=== PATIENT | male | born 1950 | race Caucasian/White ===

== ENCOUNTER 2019-07-28 12:21 | Observation (INO) ==
--- NOTE | 2019-07-28 12:45 | ERNOTE ---
Abdominal HPI - Narrative Date of Service: 07/28/19 - General Chief Complaint: Constipation Time Seen by Provider: 07/28/19 12:45 Source: patient Exam Limitations: no limitations - Immun/Allergies/Home Medications Immunizatons: IMMUNIZATION HX Immunizations Up to Date Yes History of Influenza Vaccine Yes Hx Pneumococcal Vaccination No Allergies/Adverse Reactions: Allergies No Known Allergies Allergy (Verified 07/28/19 18:58) Home Medications: HOME MEDICATIONS Multivitamin [Poly-Vitamin] 1 ea PO DAILY 09/10/15 [Last Taken Unknown] lisinopril 10 mg tablet 10 mg PO DAILY #90 tab 09/23/18 [Last Taken Unknown] - History of Present Illness Narrative: The patient is a 68 year old male who presents for constipation which has been present 3 days. There are associated symptoms of bloating, decreased appetite, dull lower abdominal pain and low back pain. The patient reports constant dull 4/10 diffuse lower abdominal pain and 8/10 low back pain. There are alleviating factors warm tub soaks and laying supine. There are aggravating factors of movement. Previous treatments have included: 1 bottle magnesium citrate today at noon with no results. The past medical history includes HTN, diverticulosis, and tubular adenoma colon. The social history is negative. The patient has had no ill contacts. Patient reports last normal bowel movement was Sunday morning. Since this time he has felt the urge to defecate but had no results. He denies nausea, vomiting, fever or chills. No history of abdominal surgery. Review of Systems - Review of Systems Constitutional: Present: no symptoms reported. Absent: recent illness, fever, chills, fatigue EYE: Present: no symptoms reported ENT: Present: no symptoms reported. Absent: ear pain, nasal drainage, sore throat Respiratory: Present: no symptoms reported. Absent: shortness of breath, cough Cardiology: Present: no symptoms reported. Absent: chest pain Gastrointestinal/Abdominal: Present: nausea, constipation, abdominal pain. Absent: vomiting, diarrhea Genitourinary: Present: no symptoms reported. Absent: dysuria, decreased urinary output Musculoskeletal: Present: back pain Skin: Present: no symptoms reported. Absent: rash Neurological: Present: no symptoms reported All Other Systems: All systems neg except as marked Medical History (Updated 07/28/19 @ 17:08 by Vanessa Jurado DO) Diverticulosis (Chronic) Onset Date: 10/17/13 Complete tear of right rotator cuff Onset Date: ~12/2017 Hypertension Onset Date: Unknown Fracture Onset Date: Unknown States he had a fracture to left lower leg in 2 spots, one by the knee and one by the ankle. History of MRI Onset Date: 05/20/[address] Juan Manuel Barrera, [facility], [place], [facility], massive rotator cuff tear involving the entire supraspinatus, infraspinatus, and subscapularis. Has humeral head chondromalacia. Extensive labral tearing. Tubular adenoma of colon Onset Date: 10/17/13 Surgical History: Surgical History (Updated 07/28/19 @ 17:08 by Vanessa Jurado DO) History of colonoscopy Onset Date: 10/17/13 Dr. Rodri Ortiz, [facility]. Tubular adenoma, extensive sigmoid diverticulosis. Recheck 5 years. History of lip surgery Onset Date: ~2015 Dr. Vito Huynh. 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 Tobacco: Smoking Status: Never smoker Alcohol: alcohol intake: never Substance Use: substance use type: does not use Dietary Habits: caffeine: Yes Type: coffee Physical Exam - Physical Exam General Appearance: Present: wd/wn, alert, mild distress Head Exam: Present: normal inspection Eye Exam: Normal inspection: bilateral Neck: Present: normal inspection Respiratory: Present: no respiratory distress, normal breath sounds, no accessory muscle use, lungs clear Cardiovascular/Chest: Present: regular rate, rhythm, no murmur Gastrointestinal/Abdominal: Present: normal bowel sounds, nondistended, soft, no organomegaly, tenderness - diffuse low abdomen Back Exam: Present: no vertebral tenderness Neurological Exam: Present: alert, oriented, normal mood/affect, no motor/sensory deficits Skin Exam: Present: normal color, warm/dry Progress - Date and Time Seen: Date and Time: 07/28/19 13:30 Due to abnormal findings on abdominal x-ray of possible pneumatosis coli will proceed with abdominal pelvis CT scan. 07/28/19 14:23 We will administer IV fluids for hydration due to increased creatinine and GFR of 31. 07/28/19 16:25 Contact with , general surgery for consult regarding abnormal CT. 07/28/19 16:44 present to discuss care with patient. 07/28/19 17:02 Plan for patient admission for repeat imaging and labs. states to admit to her and she will discuss with for consult as well as if they need urology consult. Instructed by Bertha PAULINO that states to admit to him with consult for general surgery. - Results and Orders Patient's Lab Results:: I have reviewed the patient's lab results. - Vital Signs Patient's Vital Signs:: I have reviewed the patient's vital signs. Vital Signs: Vital Signs 07/28/19 12:41 Temperature 36.9 C Pulse Rate 86 Respiratory Rate 15 Blood Pressure 153/84 H O2 Sat by Pulse Oximetry 96 - X-Ray X-Ray #1 X-Ray: abdomen Interpretation: Reviewed by me X-ray Comments: IMPRESSION: 1. Stool retention, with questionable areas of potential pneumatosis coli along the right side of the colon as discussed above. Correlate clinically. Consider CT examination of further evaluate. 2. No evidence for bowel obstruction. 3. Air-fluid levels within large bowel segments suggestive of potential colitis. Ordering provider DELICIA Israel was informed regarding the above results by telephone on 07/28/2019 1:26 PM. Electronically signed by Vijay Galarza M.D.. - CT/Ultrasound CT/Ultrasound Narrative: IMPRESSION: 1. 3 mm calcification of the distal right ureter causing right-sided obstructive uropathy. 2. Potential pneumatosis coli suggested at the distended cecum/ascending colon without definite signs of bowel wall thickening or adjacent inflammatory process. There is no evidence for extraluminal gas or fluid collection. This is of unknown clinical significance, and can be due to benign causes (for example, but not exclusive to, asthma, COPD, steroid use, immunosuppression, cystic fibrosis) but correlate clinically for potential colonic ischemia or toxic megacolon, as these processes cannot be entirely excluded. Consider surgical consultation. 3. Additional comments are as above. Ordering provider DELICIA Israel was informed regarding the above results by telephone on 07/28/2019 4:18 PM. - Progress/Reassessment Chief Complaint: Constipation Progress:: Improved Departure Clinical Impression: Pneumatosis coli, Acute renal insufficiency, Ureteral calculus, right, Elevated lipase - Departure Disposition: Still a patient Condition: Fair
[2019-07-28] MEDS ORDERED: DIATRIZOATE MEGLUMINE, SODIUM 30 ML BTL PO ONE (13:34)
[2019-07-28 13:48] LABS: Hematocrit 48.2 % (42.0-52.0); Hemoglobin 16.1 gm/dL (13.5-18.0); Mean Cell Volume 90.8 fl (78-100); Mean Corpuscular Hemoglobin 30.3 pg (27-31); Mean Corpuscular Hgb Conc 33.4 g/dl (32-36); Mean Platelet Volume 9.5 fl (8-11.3); Neutrophil # 8.5 K/mm3 (1.3-6.0); Neutrophil % 78.4 % (42-75.0); Platelet Count 192 K/mm3 (150-450); Red Blood Count 5.31 M/mm3 (4.7-6.0); Red Cell Distribution Width 12.9 % (11.5-14.0); White Blood Count 10.8 K/mm3 (4.0-10.5)
[2019-07-28 13:53] LABS: Urine Bilirubin Negative (NEGATIVE); Urine Blood Negative /ul (NEGATIVE); Urine Ketone Negative (NEGATIVE); Urine Nitrite Negative (NEGATIVE); Urine Protein Negative (NEGATIVE); Urine Specific Gravity 1.025 SP.GR. (1.005-1.030); Urine Urobilinogen Normal (NORMAL); Urine pH 5.5 pH (5.0-7.0)
[2019-07-28 13:59] LABS: Urine Appearance Clear (CLEAR); Urine Bacteria None Seen; Urine Color Yellow; Urine RBC None Seen /hpf (0-5); Urine WBC None Seen /hpf (0-5)
[2019-07-28 14:03] LABS: Albumin * 3.8 gm/dl (3.4-5.0); Anion Gap 12.3 mmol/L (6.8-13.8); BUN/Creatinine Ratio 8.8 (9.0-21.6); Bilirubin, Total 0.7 mg/dL (0.0-1.1); Calcium * 9.2 mg/dL (7.9-10.9); Carbon Dioxide 29.5 mmol/L (24-32.6); Potassium 4.8 mmol/L (3.4-4.6); Total Protein 7.2 gm/dL (6.2-8.2)
[2019-07-28] MEDS ORDERED: NORMAL SALINE 1,000 ML IV PRN (14:17)
[2019-07-28] MEDS ORDERED: ONDANSETRON HCL/PF 2 MG/ML VIAL IV PRN (17:03)
[2019-07-28] MEDS ORDERED: HYDROcodone/ACETAMINOPHEN 1 EACH TABLET PO PRN (17:03)
--- NOTE | 2019-07-28 17:08 | CONS ---
- Reason for consultation (1) Acute renal insufficiency Date of Service: 07/28/19 (2) Pneumatosis coli Date of Service: 07/28/19 (3) Ureteral calculus, right Date of Service: 07/28/19 HPI - General Date of Service: 07/28/19 Source: patient Exam Limitations: no limitations - History of Present Illness Initial Comments: Colby is a pleasant 68-year-old gentleman who feels like he has been constipated for the last several days. He tried taking a bottle of magnesium citrate today without relief. His pain is in the right side of his abdomen and in the right flank. It is worse in the right flank. His colonoscopy is up-to-date. He can urinate without difficulty. He had a CT scan which demonstrates a right ureteral stone. This also shows possible pneumatosis in the right colon. He has significant sigmoid diverticulosis with no evidence of diverticulitis. His white count is normal. His creatinine is elevated. Timing/Duration: 1 week Severity: moderate Modifying Factors - (Worsens): Reports: movement Modifying Factors - (Improves): Reports: immobilization Associated Symptoms: denies symptoms Allergies/Adverse Reactions: Allergies No Known Allergies Allergy (Verified 07/28/19 18:58) Home Medications: Home Medications Medication Instructions Recorded Last Taken Multivitamin [Poly-Vitamin] 1 ea PO DAILY 09/10/15 Unknown lisinopril 10 mg tablet 10 mg PO DAILY #90 tab 09/23/18 Unknown Procedures Endoscopic polypectomy of large intestine (10/17/13) Medications - Medications Current Medications: Current Medications Sodium Chloride (Sodium Chloride 0.9%) 1,000 mls @ 999 mls/hr IV .Q1H1M PRN PRN Reason: HYDRATION Stop: 08/27/19 14:18 Last Infusion: 07/28/19 15:23 Dose: Infused Documented by: Review of Systems - Review of Systems Generalized/Overall Review: Present: Malaise EENTM: Present: No Symptoms Reported Respiratory: Present: No Symptoms Reported Cardiac: Present: No Symptoms Reported Abdominal: Present: Abdominal Pain, Constipation Genitourinary: Present: No Symptoms Reported Musculoskeletal: Present: No Symptoms Reported Neurological: Present: No Symptoms Reported Skin: Present: No Symptoms Reported Endocrine: Present: No Symptoms Reported Physical Examination - Exam Vital Signs: Vital Signs - Last Taken Temp 36.9 C 07/28/19 12:41 Pulse 86 07/28/19 12:41 Resp 15 07/28/19 12:41 BP 153/84 H 07/28/19 12:41 Pulse Ox 96 07/28/19 12:41 O2 Oxygen Delivery Method Room Air Constitutional: Present: Alert, Oriented x3, Cooperative ENT Exam: Present: hearing grossly normal Eye Exam: bilateral eye: normal inspection Neck: Present: supple, trachea midline Breasts: Present: Exam deferred Respiratory: Present: chest non-tender, lungs clear, normal breath sounds Cardiovascular/Chest: Present: regular rate, rhythm, no JVD Abdomen: Present: Normal bowel sounds, soft, nondistended, no rebound tenderness, no masses, obese, tender, CVA tenderness. Absent: guarding, rigidity, rebound tenderness /Rectal: Present: Exam deferred Extremity: Present: normal range of motion Skin Exam: Present: normal color Neurologic: Present: robot technician II-XII nml as tested Appearance: Present: appropriate appearance Eye contact: Present: cooperative, good eye contact, normal speech Thoughts: Present: normal thought pattern - Results and Findings: Lab/Microbiology results last 24 hrs: Abnormal/Pending Laboratory Last 24 HRS 07/28/19 07/28/19 13:45 13:45 WBC 10.8 H Neutrophils % 78.4 H Lymphocytes % 10.4 L Monocytes % 10.5 H Neutrophils # 8.5 H Lymphocytes # 1.13 L Monocytes # 1.1 H Potassium 4.8 H Creatinine 2.27 H D Est GFR (Non-Af Amer) 31 L D BUN/Creatinine Ratio 8.8 L ALT 16 L Lipase 660 H - Assessments/Findings (1) Acute renal insufficiency Problem: Acute (2) Pneumatosis coli Problem: Acute (3) Ureteral calculus, right Problem: Acute Plan - Plan Plan: discussed with dr. Bhatt He will be admitting, im consulting continue to monitor IVF overnoc Uro consult in am, if not improved abd pain already improved with BM normal WBC, no signs of ischemia I reviewed his CT scan and images.
[2019-07-28] MEDS: NORMAL SALINE 1,000 ML IV PRN (18:52)
[2019-07-29] MEDS: NORMAL SALINE 1,000 ML IV PRN ×3 (02:25→19:09)
[2019-07-29] MEDS: HYDROmorphone HCL 1 MG/ML DISP.SYRIN IV PRN ×2 (02:28→19:08)
[2019-07-29 05:52] LABS: Hematocrit 42.2 % (42.0-52.0); Hemoglobin 13.8 gm/dL (13.5-18.0); Mean Cell Volume 91.5 fl (78-100); Mean Corpuscular Hemoglobin 29.9 pg (27-31); Mean Corpuscular Hgb Conc 32.7 g/dl (32-36); Mean Platelet Volume 9.5 fl (8-11.3); Neutrophil # 5.7 K/mm3 (1.3-6.0); Neutrophil % 68.1 % (42-75.0); Platelet Count 160 K/mm3 (150-450); Red Blood Count 4.61 M/mm3 (4.7-6.0); Red Cell Distribution Width 12.9 % (11.5-14.0); White Blood Count 8.4 K/mm3 (4.0-10.5)
[2019-07-29 06:05] LABS: Anion Gap 11.7 mmol/L (6.8-13.8); BUN/Creatinine Ratio 9.3 (9.0-21.6); Bilirubin, Total 0.9 mg/dL (0.0-1.1); Ca. Corrected For Albumin 8.5 mg/dL (8.4-10.2); Carbon Dioxide 26.7 mmol/L (24-32.6); Potassium 4.4 mmol/L (3.4-4.6); Total Protein 5.9 gm/dL (6.2-8.2)
[2019-07-29] MEDS ORDERED: ONDANSETRON HCL/PF 2 MG/ML VIAL IV PRN (09:06)
--- NOTE | 2019-07-29 09:07 | PN ---
Dictated Progress Note - Date and Time Seen: Date: 07/29/19 Time: 09:05 - Progress Note Narrative: Feeling better today. min abd pain. right flank pain also improved. Vital Signs - Last Taken Temp 36.3 C 07/29/19 06:24 Pulse 65 07/29/19 06:24 Resp 18 07/29/19 06:24 BP 121/74 07/29/19 06:24 Pulse Ox 95 07/29/19 06:24 Abnormal/Pending Laboratory Last 24 HRS 07/29/19 07/29/19 07/28/19 05:40 05:40 13:45 WBC RBC 4.61 L Neutrophils % Lymphocytes % 17.9 L Monocytes % 13.7 H Neutrophils # Lymphocytes # Monocytes # 1.2 H Potassium 4.8 H Chloride 107 H Creatinine 2.26 H 2.27 H D Est GFR (Non-Af Amer) 31 L 31 L D BUN/Creatinine Ratio 8.8 L ALT 13 L 16 L Total Protein 5.9 L Albumin 3.0 L Lipase 660 H 07/28/19 13:45 WBC 10.8 H RBC Neutrophils % 78.4 H Lymphocytes % 10.4 L Monocytes % 10.5 H Neutrophils # 8.5 H Lymphocytes # 1.13 L Monocytes # 1.1 H Potassium Chloride Creatinine Est GFR (Non-Af Amer) BUN/Creatinine Ratio ALT Total Protein Albumin Lipase NAD abd non distended, non tender, no guarding or rebound non labored respirations Imp: poss pneumatosis coli ureteral stone elevated creatine Plan: IVF no acute general surgery issues, no clinic signs of pneumatosis bowels are working WBC decreased
[2019-07-29] MEDS: HYDROcodone/ACETAMINOPHEN 1 EACH TABLET PO SCH ×3 (10:04→20:36)
[2019-07-29] MEDS: LISINOPRIL 10 MG TABLET PO SCH (10:41)
--- NOTE | 2019-07-29 17:32 | HP ---
Chief Complaint - Chief Complaint Date of Service: 07/29/19 Time of Service: 08:30 Chief Complaint: Abdominal, right flank pain History of Present Illness: Colby is a 68 yo male that presented to the [facility] ER with right abdominal pain and right flank pain for the last few days. Symptoms were worsening. He reports he has been having bowel movements. He denies blood in urine or stool. No fever or chills. He presented to the ER and abdominal xray indicated possible pneumatosis coli, so a CT was completed to further evaluate. CT showed possible pneumatosis coli but showed a 3mm distal ureteral stone with obstructive uropathy. General surgery was consulted to evaluate the patient for pneumatosis coli. Dr. Jurado evaluated the patient and based on imaging and exam felt that this was not pneumatosis coli and that the patients symptoms were likely due to obstructed ureteral stone. Medical History (Updated 07/28/19 @ 21:20 by Stella Ashton [facility]) Diverticulosis (Chronic) Onset Date: 10/17/13 Complete tear of right rotator cuff Onset Date: ~12/2017 Hypertension Onset Date: Unknown Fracture Onset Date: Unknown States he had a fracture to left lower leg in 2 spots, one by the knee and o ne by the ankle. History of MRI Onset Date: 05/20/[address] Juan Manuel Barrera, [facility], massive rotator cuff tear involving the entire supraspinatus, infraspinatus, and subscapularis. Has humeral head chondromalacia. Extensive labral tearing. Tubular adenoma of colon Onset Date: 10/17/13 Surgical History: Surgical History (Updated 07/28/19 @ 17:08 by Vanessa Jurado DO) History of colonoscopy Onset Date: 10/17/13 Dr. Rodri Ortiz, [facility]. Tubular adenoma, extensive sigmoid diverticulosis. Recheck 5 years. History of lip surgery Onset Date: ~2015 Dr. Vito Huynh. Family History: Family History (Updated 09/27/18 @ 18:03 by Ashli Leonard RN) Father , age 76 Cancer Agent [place] poisoning Social History: (Last Reviewed 07/28/19 @ 18:59 by Mick Damon RN) Social History: adopted: No assisted: No Marital status: Single lives independently: Yes household members: none number of children: 2 current occupational status: employed current occupation: [employer] Highest education level completed: some college, no degree Service: Yes branch: [employer] Tobacco: Smoking Status: Never smoker Alcohol: alcohol intake: never Substance Use: substance use type: does not use Dietary Habits: caffeine: Yes Type: coffee Review Of Systems (GEN) - Review of Systems Generalized/Overall Review: Absent: Weakness, Chills, Fever EENTM: Present: No Symptoms Reported Respiratory: Absent: Cough, Shortness of Breath Cardiac: Absent: Chest Pain, Edema Abdominal: Present: Nausea, Abdominal Pain. Absent: Vomiting, Hematemesis, Constipation, Bright blood from rectum Genitourinary: Absent: Burning, Itching, Urgency, Frequency, Hesitancy Musculoskeletal: Present: Back Pain Neurological: Present: No Symptoms Reported Skin: Present: No Symptoms Reported Immunizations: IMMUNIZATION HX Immunizations Up to Date Yes History of Influenza Vaccine Yes Hx Pneumococcal Vaccination No Allergies/Adverse Reactions: Allergies Allergy/AdvReac Type Severity Reaction Status Date / Time No Known Allergies Allergy Verified 07/28/19 18:58 Home Medications: HOME MEDICATIONS Multivitamin [Poly-Vitamin] 1 ea PO DAILY 09/10/15 [Last Taken Unknown] lisinopril 10 mg tablet 10 mg PO DAILY #90 tab 09/23/18 [Last Taken Unknown] Exam - Exam Vital Signs: Vital Signs - Last Taken Temp 36.7 C 07/29/19 13:29 Pulse 67 07/29/19 13:29 Resp 16 07/29/19 13:29 BP 130/85 07/29/19 13:29 Pulse Ox 94 07/29/19 13:29 Constitutional: Present: Alert, Oriented x3, Cooperative ENT Exam: Present: hearing grossly normal Eye Exam: bilateral eye: normal inspection Back Exam: Present: other - Right flank pain, positive usman's on right Respiratory: Present: lungs clear, normal breath sounds Cardiovascular/Chest: Present: regular rate, rhythm, no edema Peripheral Pulses: radial (R): 2+, radial (L): 2+ Abdomen: Present: Normal bowel sounds, soft, nondistended, no rebound tender ness, no hepatospenomegaly, no masses, tender - RLQ Skin Exam: Present: normal color, warm/dry, no cyanosis Appearance: Present: appropriate appearance, appropriate insight Eye contact: Present: cooperative, good eye contact, normal speech Thoughts: Present: normal thought pattern, no apparent hallucination Diagnostic Studies: Abnormal Lab Results 07/29/19 07/29/19 Range/Units 05:40 05:40 RBC 4.61 L (4.7-6.0) M/mm3 Lymphocytes % 17.9 L (20-51) % Monocytes % 13.7 H (0.0-9) % Monocytes # 1.2 H (0.0-1.0) k/mm3 Chloride 107 H (97-106) mmol/L Creatinine 2.26 H (0.4-1.4) mg/dL Est GFR (Non-Af Amer) 31 L (60-130) mL/min ALT 13 L (19-67) U/L Total Protein 5.9 L (6.2-8.2) gm/dL Albumin 3.0 L (3.4-5.0) gm/dl Laboratory Results WBC 8.4 K/mm3 (4.0-10.5) D 07/29/19 05:40 RBC 4.61 M/mm3 (4.7-6.0) L 07/29/19 05:40 Hgb 13.8 gm/dL (13.5-18.0) 07/29/19 05:40 Hct 42.2 % (42.0-52.0) 07/29/19 05:40 MCV 91.5 fl (78-100) 07/29/19 05:40 MCH 29.9 pg (27-31) 07/29/19 05:40 MCHC 32.7 g/dl (32-36) 07/29/19 05:40 RDW 12.9 % (11.5-14.0) 07/29/19 05:40 Plt Count 160 K/mm3 (150-450) 07/29/19 05:40 MPV 9.5 fl (8-11.3) 07/29/19 05:40 Immature Gran % (Auto) 0.20 % (0.001-0.429) 07/29/19 05:40 Immature Gran # (Auto) 0.02 K/mm3 (0.000-0.0310) 07/29/19 05:40 68.1 % (42-75.0) 07/29/19 05:40 17.9 % (20-51) L 07/29/19 05:40 13.7 % (0.0-9) H 07/29/19 05:40 0.0 % (0.0-3.0) 07/29/19 05:40 0.1 % (0.0-1.0) 07/29/19 05:40 Nucleated RBC % 0.0 k/mm3 (0-1) 07/29/19 05:40 5.7 K/mm3 (1.3-6.0) 07/29/19 05:40 1.51 k/mm3 (1.5-3.5) 07/29/19 05:40 1.2 k/mm3 (0.0-1.0) H 07/29/19 05:40 0.0 k/mm3 (0.0-0.7) 07/29/19 05:40 Absolute Basophils 0.0 k/mm3 (0.0-0.1) 07/29/19 05:40 Sodium 141 mmol/L (132-142) 07/29/19 05:40 141 mmol/L (130-142) 07/29/19 05:40 Potassium 4.4 mmol/L (3.4-4.6) 07/29/19 05:40 Chloride 107 mmol/L (97-106) H 07/29/19 05:40 Carbon Dioxide 26.7 mmol/L (24-32.6) 07/29/19 05:40 11.7 mmol/L (6.8-13.8) 07/29/19 05:40 BUN 21 mg/dL (6-23) 07/29/19 05:40 2.26 mg/dL (0.4-1.4) H 07/29/19 05:40 Est GFR (Non-Af Amer) 31 mL/min (60-130) L 07/29/19 05:40 9.3 (9.0-21.6) 07/29/19 05:40 90 mg/dL (70-110) 07/29/19 05:40 Calcium 8.0 mg/dL (7.9-10.9) 07/29/19 05:40 Calcium Adj for Albumin 8.5 mg/dL (8.4-10.2) 07/29/19 05:40 0.9 mg/dL (0.0-1.1) 07/29/19 05:40 AST 13 U/L (0-48) 07/29/19 05:40 ALT 13 U/L (19-67) L 07/29/19 05:40 64 U/L (50-170) 07/29/19 05:40 5.9 gm/dL (6.2-8.2) L 07/29/19 05:40 3.0 gm/dl (3.4-5.0) L 07/29/19 05:40 Amylase 81 U/L (25-115) 07/28/19 13:45 660 U/L (73-393) H 07/28/19 13:45 Yellow 07/28/19 13:50 Clear (CLEAR) 07/28/19 13:50 5.5 pH (5.0-7.0) 07/28/19 13:50 Ur Specific [place] 1.025 SP.GR. (1.005-1.030) 07/28/19 13:50 Negative mg/dL (NEGATIVE) 07/28/19 13:50 Negative mg/dL (NEGATIVE) 07/28/19 13:50 Negative mg/dL (NEGATIVE) 07/28/19 13:50 Negative /ul (NEGATIVE) 07/28/19 13:50 Negative (NEGATIVE) 07/28/19 13:50 Negative mg/dl (NEGATIVE) 07/28/19 13:50 Normal EU/dl (NORMAL) 07/28/19 13:50 Ur Leukocyte Esterase Negative /ul (NEGATIVE) 07/28/19 13:50 None seen /hpf (0-5) 07/28/19 13:50 None seen /hpf (0-5) 07/28/19 13:50 Ur Epithelial Cells None seen /hpf (0-5) 07/28/19 13:50 None seen (NONE) 07/28/19 13:50 No culture indicated 07/28/19 13:50 Assessment/Plan - Narrative Narrative: Colby is a 68 yo male with right ureteral obstructive uropathy with acute renal failure. Will consult Urology who plans to surgically treat stone due to acute renal failure and evidence of obstruction. Patient to be NPO at midnight. Will control pain with oral hydrocodone and IV dilaudid for prn breakthrough pain. Will start flomax to see if he might be able to pass this before surgery. Anticipate being able to discharge after surgery. Patient was evaluated for pre-operative risks. Based on Revised Cardiovascular Risk Index he has a risk of <0.4% for cardiovascular event. I feel he is medically cleared for surgery. - Assessment/Plan (1) Obstructive uropathy Problem: Acute (2) Acute renal failure Problem: Acute (3) Ureteral calculus, right Problem: Acute
[2019-07-29] MEDS ORDERED: TAMSULOSIN HCL 0.4 MG CAP.SR.24H PO SCH (18:00)
--- NOTE | 2019-07-29 20:33 | CONS ---
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 Seen yesterday with renal failure and a CT demonstrating a distal right 3 to 4 mm stone. Admitted for IV pain nausea control. I am consulted for recommendations regarding stone. 08/07 CT with contrast: No additional renal stones. Bilateral cysts. Right hydroureteronephrosis down to a 3 or 4 mm stone with delayed excretion consistent with partial obstruction. Film independently reviewed and interpreted by myself. Location: Right flank Duration: Since Sunday Severity/Stage: Severe Associated Sx's: Right-sided flank pain nausea and vomiting Modifying factors: Remain symptomatic despite IV pain and nausea medicine Quality: Colicky Past medical history: Denies coronary, pulmonary or significant medical issues. Not diabetic. 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 Review of systems: General: No fevers Lungs: Non-smoker no shortness of breath Heart: No cardiac issues, no chest pain with activity GI: He has had nausea and vomiting with the pain Endocrine: Not diabetic Musculoskeletal: Severe on and off right-sided flank pain since Sunday : No urinary troubles normally mild urgency and frequency currently 14 point review of systems otherwise negative, important positives noted - History of Present Illness Allergies/Adverse Reactions: Allergies No Known Allergies Allergy (Verified 07/28/19 18:58) Home Medications: Home Medications Medication Instructions Recorded Last Taken Multivitamin [Poly-Vitamin] 1 ea PO DAILY 09/10/15 Unknown lisinopril 10 mg tablet 10 mg PO DAILY #90 tab 09/23/18 Unknown Procedures Endoscopic polypectomy of large intestine (10/17/13) Medications - Medications Current Medications: Current Medications Hydrocodone Bitart/Acetaminophen ([place] 5-325) 2 each PO Q6H ANALI Stop: 08/28/19 09:16 Last Admin: 07/29/19 15:37 Dose: 2 each Documented by: Hydromorphone HCl (Dilaudid) 1 mg IV Q1H PRN PRN Reason: Pain Stop: 08/27/19 17:04 Last Admin: 07/29/19 19:08 Dose: 1 mg Documented by: Sodium Chloride (Sodium Chloride 0.9%) 1,000 mls @ 999 mls/hr IV .Q1H1M PRN PRN Reason: HYDRATION Stop: 08/27/19 14:18 Last Infusion: 07/28/19 15:23 Dose: Infused Documented by: Sodium Chloride (Sodium Chloride 0.9%) 1,000 mls @ 125 mls/hr IV .Q8H PRN PRN Reason: HYDRATION Stop: 08/27/19 17:06 Last Admin: 07/29/19 19:09 Dose: 125 mls/hr Documented by: Lisinopril (Zestril) 10 mg PO DAILY ANALI Stop: 08/28/19 09:16 Last Admin: 07/29/19 10:41 Dose: 10 mg Documented by: Tamsulosin HCl (Flomax) 0.4 mg PO DAILY@1800 ANALI Stop: 08/28/19 18:01 Last Admin: 07/29/19 17:04 Dose: 0.4 mg Documented by: Physical Examination - Exam Narrative: General: Looks a little uncomfortable but nontoxic, not in severe renal colic at the time of my examination Psych: Appropriate affect, was mentating well, answered appropriately, has insight, has decision-making capacity HEENT: EOM grossly intact no scleral icterus Lungs: Respirations unlabored, no audible wheezing, good inspiratory effort Abdomen: Benign abdomen no rebound Neuro: No gross focal deficits Extremities: Moves all 4 without difficulty, good fine dexterity, perfused Cardiovascular: Pulse was regular, palpable, rate was also regular during my examination Skin: No obvious rash or bruising on visualized skin Back: No CVA tenderness Vital Signs: Vital Signs - Last Taken Temp 97.9 F 07/29/19 19:00 Pulse 72 07/29/19 19:00 Resp 13 07/29/19 19:00 BP 144/83 07/29/19 19:00 Pulse Ox 92 L 07/29/19 19:00 O2 Oxygen Delivery Method Room Air - Results and Findings: Narrative: Right small distal ureteral calculus however patient has been symptomatic since Sunday now has renal failure on top: Discussed trial of passage but unlikely to progress based on current history and still pretty symptomatic. He has been n.p.o. My recommendation was to consider intervention consisting of cystoscopic evaluation with right retrograde and attempted right ureteroscopy with laser/basket versus simply stenting depending on intraoperative findings. Risks discussed including bleeding/infection/potential injury to ureter including evulsion/stricture/perforation. Typical stent symptoms discussed. Understands possibility may simply stent and fight another day if infection or ureter narrow. Patient understands risks and wants to proceed. We will touch base with the operating room make sure we can go ahead today. Should be able to go home afterwards with or without stent. If goes home with stent may need second procedure if I cannot get stones a day or procedure to remove stent which can be done at a later date. Lab/Microbiology results last 24 hrs: Abnormal/Pending Laboratory Last 24 HRS 07/29/19 07/29/19 05:40 05:40 RBC 4.61 L Lymphocytes % 17.9 L Monocytes % 13.7 H Monocytes # 1.2 H Chloride 107 H Creatinine 2.26 H Est GFR (Non-Af Amer) 31 L ALT 13 L Total Protein 5.9 L Albumin 3.0 L
[2019-07-30] MEDS: HYDROmorphone HCL 1 MG/ML DISP.SYRIN IV PRN ×2 (01:06→11:12)
[2019-07-30] MEDS: HYDROcodone/ACETAMINOPHEN 1 EACH TABLET PO SCH ×3 (03:50→16:26)
[2019-07-30] MEDS: NORMAL SALINE 1,000 ML IV PRN ×2 (03:51→11:53)
[2019-07-30] MEDS: LISINOPRIL 10 MG TABLET PO SCH (08:32)
[2019-07-30 09:19] LABS: Hematocrit 39.6 % (42.0-52.0); Hemoglobin 13.2 gm/dL (13.5-18.0); Mean Cell Volume 90.8 fl (78-100); Mean Corpuscular Hemoglobin 30.3 pg (27-31); Mean Corpuscular Hgb Conc 33.3 g/dl (32-36); Mean Platelet Volume 10.4 fl (8-11.3); Neutrophil # 6.2 K/mm3 (1.3-6.0); Neutrophil % 75.6 % (42-75.0); Platelet Count 157 K/mm3 (150-450); Red Blood Count 4.36 M/mm3 (4.7-6.0); Red Cell Distribution Width 12.7 % (11.5-14.0); White Blood Count 8.2 K/mm3 (4.0-10.5)
[2019-07-30 09:30] LABS: Albumin * 2.9 gm/dl (3.4-5.0); Anion Gap 12.9 mmol/L (6.8-13.8); BUN/Creatinine Ratio 7.8 (9.0-21.6); Bilirubin, Total 0.6 mg/dL (0.0-1.1); Ca. Corrected For Albumin 8.8 mg/dL (8.4-10.2); Calcium * 8.2 mg/dL (7.9-10.9); Carbon Dioxide 24.5 mmol/L (24-32.6); Potassium 4.4 mmol/L (3.4-4.6); Total Protein 5.9 gm/dL (6.2-8.2)
--- NOTE | 2019-07-30 11:33 | ANES ---
Anesthesia Pre Procedure Eval Vitals/Labs: Last Vital Signs Temp 36.8 C 07/30/19 10:37 Pulse 63 07/30/19 10:37 Resp 12 07/30/19 10:37 BP 137/81 07/30/19 10:37 Pulse Ox 96 07/30/19 10:37 HOME MEDICATIONS Multivitamin [Poly-Vitamin] 1 ea PO DAILY 09/10/15 [Last Taken Unknown] lisinopril 10 mg tablet 10 mg PO DAILY #90 tab 09/23/18 [Last Taken Unknown] Allergies/Adverse Reactions: Allergies Allergy/AdvReac Type Severity Reaction Status Date / Time No Known Allergies Allergy Verified 07/28/19 18:58 - Planned Procedure Planned Procedure: cysto, btl rpg, right ureteroscopy, laser litho, Medication List Reviewed:: Yes Allergies Verified: Yes Medical History (Updated 07/30/19 @ 08:26 by Andrei Bhatt DO) Diverticulosis (Chronic) Onset Date: 10/17/13 Complete tear of right rotator cuff Onset Date: ~12/2017 Hypertension Onset Date: Unknown Fracture Onset Date: Unknown States he had a fracture to left lower leg in 2 spots, one by the knee and one by the ankle. History of MRI Onset Date: 05/20/[address] Juan Manuel Barrera, [facility], massive rotator cuff tear involving the entire supraspinatus, infraspinatus, and subscapularis. Has humeral head chondromalacia. Extensive labral tearing. Tubular adenoma of colon Onset Date: 10/17/13 Surgical History (Updated 07/28/19 @ 17:08 by Vanessa Jurado DO) History of colonoscopy Onset Date: 10/17/13 Dr. Rodri Ortiz, [facility], [place]. Tubular adenoma, extensive sigmoid diverticulosis. Recheck 5 years. History of lip surgery Onset Date: ~2015 Dr. Vito Huynh. Family History (Updated 09/27/18 @ 18:03 by Ashli Leonard RN) Father , age 76 Cancer Agent Wheeler poisoning - Family Anesthesia History Family History:: no untoward family reactions to anesthesia, no familial bleeding tendencies, no family history of clotting disorders, no family history of premature - Airway/Neck/Teeth Within Normal Limits:: Yes Teeth Condition: intact Neck Exam: full range of motion Mallampatti Score: 2 Thyromental (T-M) distance: > 6 cm Mandibulo Hyoid distance: > 3 cm - Respiratory Respiratory Physical: lungs clear Smoking Status: Never smoker Sleep Apnea currently treated: No Sleep Apnea by current assessment: No - Cardiovascular Cardiac History: hypertension Tolerate Activity: Fair Heart Sounds: S1 & S2, Regular - Anesthesia Assessment and Plan ASA Class: PS, II Anesthesia Type Plan: General ET
[2019-07-30] MEDS ORDERED: ceFAZolin SODIUM 1 GM VIAL IV PRN (13:10)
--- NOTE | 2019-07-30 13:52 | OR ---
Operative Report - Dictated Report Narrative: Location: Main OR Anesthesia: General Preoperative diagnosis: Right distal ureteral stone(s). Postoperative diagnosis: same Procedure: #1 Cystoscopy with right retrograde pyelogram #2 right semirigid ureteroscopy with laser lithotripsy and placement of a 6 by multilength double J stent. Indications: 68-year-old male symptomatic distal small stone unresponsive to conservative measures. We discussed options electing to move forward with the above-mentioned procedure as a means to treat stone. Procedure: Informed consent obtained. Risks, benefits, alternatives and risks to the alternatives were previously discussed. General endotracheal anesthesia ind uced. Placed in the dorsal lithotomy position. Prepped and draped. Timeout taken per protocal. Scope introduced into the urethra and navigated towards the bladder. 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 Picture was obtained. Quick cystoscopy without tumors, stones or suspicious lesions. Mild obstructive change. Right retrograde was obtained and interpreted by Dr. Sim using a 5 German endhole catheter Right: 5 German catheter introduced. 5 to 7cc of Isovue were injected to perform the retrograde. Distal ureter J-hook, significant intramural narrowing followed by shadowing filling defect consistent with stone and a hydronephrotic ureter at that transition point. The stone seemed to be floating. Angled Glidewire wire introduced. Semirigid ureteroscope navigated i to the bladder. Ureter was really narrow. I placed a Bentson wire and I bridged the ureter with both wires and with gentle pressure I was able to pop through the intramural ureter into the hydronephrotic portion and actually saw the stone. Stone encountered and fragmented using the 270 micron-holmium laser with an energy of 0.4 joules and a rate of 40 hertz. I started to dust the stone and got off about a millimeters worth of stone into debris before the stone became light enough to float North. It bypassed the bunch of redundant portions of ureter alongside the wire. My resistance from the intramural ureter on the scope was significant enough where I could not get any higher safely. At this point I did not feel it was in the patient's best interest to continue. Scope withdrawn leaving safety wire in place 6 by MultiLink stent deployed. Patient tolerated the procedure and transferred to recovery. EBL: 0 cc Specimen: None obtained. Condition: Tolerated procedure. Important findings: Narrow J-hook ureter with ureteroscopy and laser however there remains a 2 to 3 mm portion of stone that navigated more proximal into the ureter behind ureteric folds that I cannot reach without passive dilation and stent. FOLLOW UP: Next Sunday in the OR. General anesthesia. Cystoscopy right stent removal right ureteroscopy with basket possible laser possible stent replacement. Please notify my office they will coordinate/schedule also notify the operating room here to schedule. If patient is miserable needs to call office we could potentially move up.
--- NOTE | 2019-07-30 14:12 | ANES ---
Post Anesthesia Discharge - Transfer of Care Transfer of Care handoff given to nurse: Yes - Discharge from PACU Discharge from PACU when meets criteria: Yes - Awake and comfortable.
--- NOTE | 2019-07-30 15:44 | ANES ---
Post Anesthesia Assessment - Vital Signs Vitals: Last Vital Signs Temp 36.9 C 07/30/19 14:35 Pulse 76 07/30/19 14:35 Resp 16 07/30/19 14:35 BP 154/75 H 07/30/19 14:35 Pulse Ox 92 L 07/30/19 14:35 Airway Patency: Normal - Mental Status Level Of Consciousness: Awake, Alert, Appropriate - Pain Level Pain Score: 0 - N/V Assessment Nausea/Vomiting Presence: None Dehydration:: No
[2019-07-30 17:46] VITALS: BP 142/74
--- NOTE | 2019-08-07 08:12 | DS ---
(1) Obstructive uropathy Problem: Acute (2) Acute renal failure Problem: Acute (3) Ureteral calculus, right Problem: Acute Date of Discharge:: 07/30/19 Description of Stay: (This document is being reproduced at a later date due to computer error losing the previously completed discharge summary that was completed on the day of discharge) Colby is a 68 yo male that was admitted due to acute renal failure with obstructive uropathy. He initially presented to the ER with constipation and abdominal pain but imaging and bloodwork showed the problem to be related to kidney stone. There was suggestion of pneumatosis coli and Dr. Jurado was consulted but felt that this was not pneumatosis coli. He was admitted for pain control with hydrocodone oral and dilaudid IV for breakthrough pain. He was started on flomax and placed in observation to see if he could pass the stone on his own. Urology was consulted in case he couldn't and renal function was monitored. His creatinine remained elevated and did not improve and he did not pass the stone on his own. Urology took him to surgery following the day of admission due to continued postrenal failure secondary to obstructive stone. He has lithotripsy and stenting. His symptoms resolved and he was discharged to home with orders to strain urine as there were still stone fragments present. He will follow up with Urology in a week for stent removal. Procedures Performed: see notes below List Procedures: Procedure: 07/30/19 #1 Cystoscopy with right retrograde pyelogram #2 right semirigid ureteroscopy with laser lithotripsy and placement of a 6 by multilength double J stent. Results and Findings: Lab Pending Results 07/28/19 13:45: WBC 10.8 H, RBC 5.31, Hgb 16.1, Hct 48.2, MCV 90.8, MCH 30.3, MCHC 33.4, RDW 12.9, Plt Count 192, MPV 9.5, Immature Gran % (Auto) 0.30, Immature Gran # (Auto) 0.03, Neutrophils % 78.4 H, Lymphocytes % 10.4 L, Mon ocytes % 10.5 H, Eosinophils % 0.0, Basophils % 0.4, Nucleated RBC % 0.0, Neutrophils # 8.5 H, Lymphocytes # 1.13 L, Monocytes # 1.1 H, Eosinophils # 0.0, Absolute Basophils 0.0 07/28/19 13:45: Sodium 141, Plasma Sodium 141, Potassium 4.8 H, Chloride 104, Carbon Dioxide 29.5, Anion Gap 12.3, BUN 20, Creatinine 2.27 H D, Est GFR (Non- Af Amer) 31 L D, BUN/Creatinine Ratio 8.8 L, Random Glucose 105, Calcium 9.2, Calcium Adj for Albumin 9.0, Total Bilirubin 0.7, AST 15, ALT 16 L, Alkaline Phosphatase 69, Total Protein 7.2, Albumin 3.8, Amylase 81, Lipase 660 H 07/28/19 13:50: Urine Color Yellow, Urine Appearance Clear, Urine pH 5.5, Ur Specific [place] 1.025, Urine Protein Negative, Urine Glucose (UA) Negative, Urine Ketones Negative, Urine Blood Negative, Urine Nitrate Negative, Urine Bilirubin Negative, Urine Urobilinogen Normal, Ur Leukocyte Esterase Negative, Urine RBC None seen, Urine WBC None seen, Ur Epithelial Cells None seen, Urine Bacteria None seen, Urine Culture Comments No culture indicated 07/29/19 05:40: WBC 8.4 D, RBC 4.61 L, Hgb 13.8, Hct 42.2, MCV 91.5, MCH 29.9, MCHC 32.7, RDW 12.9, Plt Count 160, MPV 9.5, Immature Gran % (Auto) 0.20, Immature Gran # (Auto) 0.02, Neutrophils % 68.1, Lymphocytes % 17.9 L, Monocytes % 13.7 H, Eosinophils % 0.0, Basophils % 0.1, Nucleated RBC % 0.0, Neutrophils # 5.7, Lymphocytes # 1.51, Monocytes # 1.2 H, Eosinophils # 0.0, Absolute Basophils 0.0 07/29/19 05:40: Sodium 141, Plasma Sodium 141, Potassium 4.4, Chloride 107 H, Carbon Dioxide 26.7, Anion Gap 11.7, BUN 21, Creatinine 2.26 H, Est GFR (Non-Af Amer) 31 L, BUN/Creatinine Ratio 9.3, Random Glucose 90, Calcium 8.0, Calcium Adj for Albumin 8.5, Total Bilirubin 0.9, AST 13, ALT 13 L, Alkaline Phosphatase 64, Total Protein 5.9 L, Albumin 3.0 L 07/30/19 05:30: Lipase 80 07/30/19 05:30: WBC 8.2, RBC 4.36 L, Hgb 13.2 L, Hct 39.6 L, MCV 90.8, MCH 30.3, MCHC 33.3, RDW 12.7, Plt Count 157, MPV 10.4, Immature Gran % (Auto) 0.20, Immature Gran # (Auto) 0.02, Neutrophils % 75.6 H, Lymphocytes % 10.9 L, Monocytes % 13.1 H, Eosinophils % 0.0, Basophils % 0.2, Nucleated RBC % 0.0, Neutrophils # 6.2 H, Lymphocytes # 0.89 L, Monocytes # 1.1 H, Eosinophils # 0.0, Absolute Basophils 0.0 07/30/19 05:30: Sodium 139, Plasma Sodium 139, Potassium 4.4, Chloride 106, Carbon Dioxide 24.5, Anion Gap 12.9, BUN 17, Creatinine 2.19 H, Est GFR (Non-Af Amer) 32 L, BUN/Creatinine Ratio 7.8 L, Random Glucose 92, Calcium 8.2, Calcium Adj for Albumin 8.8, Total Bilirubin 0.6, AST 13, ALT 12 L, Alkaline Phosphatase 55, Total Protein 5.9 L, Albumin 2.9 L Discharge Location: Home Disposition: Home self-care Condition: Good Discharge Activity: Activity as tolerated Discharge Diet: General/regular food Referrals: Patricio Sim MD [Associate] - (Follow up in OR next Sunday.) Andrei Bhatt DO [Primary Care Provider] - One Week Consultation Done:: General Surgery, Urology Problem Oriented Discharge Instructions to Patient/Family: Kidney Stones, [id number] Additional Patient Instructions (free text): Follow up with Dr. Bhatt on 08-06-19 at 10:45 am . This is a TCM. Prescriptions (Any new or edited meds): Ciprofloxacin HCl [Cipro] 500 mg PO BID PRN #6 tab PRN Reason: If having fevers. HYDROmorphone HCL [Dilaudid] 2 mg PO Q8H PRN #18 tab PRN Reason: Severe Pain (Pain Scale 7-10) Oxybutynin Chloride [Ditropan] 5 mg PO BID #30 tab traMADol HCL [Tramadol HCl] 50 mg PO Q8H PRN #24 tab PRN Reason: Mild Pain (Pain Scale 1-3) Complete Home Medications List: Complete Home Medication List: Multivitamin [Poly-Vitamin] 1 ea PO DAILY 09/10/15 lisinopril 10 mg tablet 10 mg PO DAILY #90 tab 09/23/18 Ciprofloxacin HCl [Cipro] 500 mg PO BID PRN #6 tab 07/30/19 HYDROmorphone HCL [Dilaudid] 2 mg PO Q8H PRN #18 tab 07/30/19 Oxybutynin Chloride [Ditropan] 5 mg PO BID #30 tab 07/30/19 traMADol HCL [Tramadol HCl] 50 mg PO Q8H PRN #24 tab 07/30/19
== END 2019-07-30 17:30 | disposition home or self-care (01) ==
LOC: ER 12:21 → MS 12:21
PROVIDERS: ADMIT Family Medicine; ATTEND Family Medicine
DX: N13.9 Obstructive and reflux uropathy, unspecified; N17.9 Acute kidney failure, unspecified; N20.1 Calculus of ureter
CPT/HCPCS: 36415; 74019; 74020; 74177; 74420; 80053; 81001; 82150; 83690; 85025; 96374; 96375; 99285; A9698; G0378; Q9963; Q9967